=== PATIENT | male | born 1955 | race Caucasian/White ===

== ENCOUNTER → 2020-05-25 11:23 | Outpatient (CLI) | payer OTHER, SELFPAY ==
--- NOTE | ~2020-05-25 | XR_ITS ---
EXAMINATION:XR_CERV2-3V_CR DATE: 05/25/2020 11:41 INDICATION: Neck pain TECHNIQUE: AP, lateral, and odontoid views of the cervical spine are provided. COMPARISON: None FINDINGS: Alignment is normal. The odontoid is intact. No fracture is identified. The vertebral body heights are maintained. There is mild loss of intervertebral disc space height at C5-6 and C6-7. Ther e is mild to moderate facet and uncovertebral joint osteoarthritis of the lower cervical spine. Degen erative osteophytes project from the anterior endplates of multiple vertebral bodies. IMPRESSION: 1. Mild cervical spondylosis without acute findings. Reviewed, dictated and finalized at location B.
--- NOTE | ~2020-05-25 | XR_ITS ---
EXAMINATION: XR thoracic spine 3V DATE: 05/25/2020 11:41 INDICATION: Muscle spasm back TECHNIQUE: AP, lateral and lateral swimmer's views of the thoracic spine were obtained. COMPARISON: None. FINDINGS: There is no fracture. Bone alignment is normal. The vertebral body heights are maintained. There is mild loss of intervertebral disc space height in the midthoracic spine. Degenerative osteoph ytes project from the anterior endplates of multiple vertebral bodies. IMPRESSION: 1. Mild thoracic spondylosis without acute findings. Reviewed, dictated and finalized at location B.
== END ==
PROVIDERS: PCP Family Medicine; Visit Provider Family Medicine
DX: M47.814 Spondylosis without myelopathy or radiculopathy, thoracic region (principal); M47.22 Other spondylosis with radiculopathy, cervical region
CPT/HCPCS: 72040; 72072

== ENCOUNTER → 2021-06-23 11:53 | Outpatient (REF) | payer OTHER, SELFPAY | LOC: ANHLAB 11:53 | PROVIDERS: Visit Provider Nurse Practitioner | DX: L57.0 Actinic keratosis (principal) | CPT/HCPCS: 88305 ==

== ENCOUNTER 2021-06-23 12:39 | Outpatient (CLI) | payer OTHER, SELFPAY ==
--- NOTE | ~2021-06-23 | XR_ITS ---
EXAMINATION: XR shoulder LT min 2V DATE: 06/23/2021 14:30 INDICATION: Left shoulder pain. TECHNIQUE: 4 views of left shoulder were obtained. COMPARISON: None. FINDINGS: Bone alignment is normal. No fracture. There is mild osteoarthritis of glenohumeral joint a nd severe osteoarthritis of the acromioclavicular joint. IMPRESSION: 1. Polyarticular osteoarthritis. Reviewed, dictated and finalized at location A.
--- NOTE | ~2021-06-23 | MR_ITS ---
EXAMINATION: MR cervical spine wo con DATE: 06/23/2021 14:08 INDICATION: Cervical radiculopathy. TECHNIQUE: Magnetic resonance imaging (MRI) of the cervical spine was performed without intravenous c ontrast. Sequences included sagittal T2-weighted FSE, sagittal STIR FSE, sagittal T1-weighted FSE, ax ial MERGE, and axial T2-weighted FSE. COMPARISON: Cervical spine radiographs 05/25/2020 FINDINGS: There is 4 degrees levocurvature of cervicothoracic spine. There is mild kyphosis of the ce rvical spine. Vertebral body heights are normal. There is moderately decreased disc height at C5-C6 a nd C6-C7. The spinal cord signal intensity is normal. The following disc levels are specifically disc ussed: C2-C3: The disc does not extend beyond the endplate margin. There is no uncovertebral joint osteoarth ritis. There is mild right and moderate left facet joint osteoarthritis. There is mild left neural fo raminal stenosis. There is no central canal stenosis. C3-C4: The disc is bulging. There is mild right and severe left uncovertebral joint osteoarthritis. T here is moderate and mild left facet joint osteoarthritis. There is mild right and moderate left neur al foraminal stenosis. There is mild central canal stenosis. C4-C5: The disc is bulging. There is mild bilateral uncovertebral joint osteoarthritis. There is mild bilateral facet joint osteoarthritis. There is no neural foraminal stenosis. There is mild central c anal stenosis. C5-C6: The disc does not extend beyond the endplate margin. There is severe bilateral uncovertebral j oint osteoarthritis. There is no facet joint osteoarthritis. There is mild bilateral neural foraminal stenosis. There is no central canal stenosis. C6-C7: The disc is bulging. There is severe bilateral uncovertebral joint osteoarthritis. There is mi ld right and severe left facet joint osteoarthritis. There is moderate right and mild left neural for aminal stenosis. There is mild central canal stenosis. C7-T1: The disc is bulging. There is mild bilateral uncovertebral joint osteoarthritis. There is aj re bilateral facet joint osteoarthritis. There is mild bilateral neural foraminal stenosis. There is mild central canal stenosis. IMPRESSION: 1. Moderate cervical spondylosis. Reviewed, dictated and finalized at location A.
--- NOTE | ~2021-06-23 | XR_ITS ---
EXAMINATION: XR knee RT 2V DATE: 06/23/2021 14:30 INDICATION: Right knee pain. TECHNIQUE: 2 views of right knee standing were obtained. COMPARISON: None. FINDINGS: Bone alignment is normal. No fracture. There is moderate osteoarthritis of medial compartme nt and mild osteoarthritis of lateral and patellofemoral compartments. No knee joint effusion. IMPRESSION: 1. Moderate right knee osteoarthritis. Reviewed, dictated and finalized at location A.
== END 2021-06-23 12:40 ==
PROVIDERS: PCP Family Medicine; Visit Provider Nurse Practitioner Family
DX: M25.512 Pain in left shoulder (principal); M25.561 Pain in right knee; M54.12 Radiculopathy, cervical region; M89.49 Other hypertrophic osteoarthropathy, multiple sites; M47.812 Spondylosis without myelopathy or radiculopathy, cervical region
CPT/HCPCS: 72141; 73030; 73560

== ENCOUNTER 2021-08-21 17:29 | Observation (INO) | payer OTHER, SELFPAY ==
[2021-08-21] VITALS (8 sets, daily range): BP systolic 104–159; BP diastolic 63–90; PULSE 71–89; RESP 18–20; TEMP 36.6–36.8; O2SAT 95–99; BMI 33.0
--- NOTE | ~2021-08-21 | MR_ITS ---
EXAMINATION: MR brain/brain stem wo/w con DATE: 08/22/2021 13:23 INDICATION: Left arm numbness. TECHNIQUE: Magnetic resonance imaging (MRI) of the brain and brainstem was performed without and with 20 mL MultiHance intravenous contrast. Sequences included sagittal and axial T1-weighted FSE, axial diffusion-weighted FS EPI, axial T2*-weighted GRE, axial T2-weighted FLAIR Propeller, and axial T2-we ighted Propeller. Postcontrast sequences included axial and coronal T1-weighted FSE. Apparent diffusi on coefficient (ADC) maps were created. COMPARISON: None. FINDINGS: There is diffuse brain volume loss. There are areas of increased T2-weighted signal intensi ty in the periventricular cerebral white matter, which is within normal limits for the patient's age. There is no intracranial hemorrhage, acute infarction, or abnormal intracranial mass lesion. The mary tricles are normal in size. There is mild mucosal thickening in the paranasal sinuses. The orbits are normal. The mastoid air cells are normal. IMPRESSION: 1. Normal aging brain. Reviewed, dictated and finalized at location A. IMPRESSION: 1. Normal aging brain.
--- NOTE | ~2021-08-21 | XR_ITS ---
XR chest 2V DATE: 08/21/2021 18:06 INDICATION: Sternal chest pain, left arm numbness TECHNIQUE: PA and lateral views COMPARISON: 11/12/2013 PA and lateral chest FINDINGS: Normal heart size. No hilar or mediastinal enlargement. No pulmonary infiltrate or consolid ation, pleural effusion or pulmonary vascular congestion or pneumothorax. Diffuse idiopathic skeletal hyperostosis of the thoracic spine. IMPRESSION: No active cardiopulmonary disease Reviewed, dictated and finalized at location A.
--- NOTE | 2021-08-21 17:40 | ECG_ITS ---
Measurements Intervals [place] Rate: 82 P: 59 MO: 198 QRS: 88 QRSD: 105 T: 32 QT: 357 QTc: 417 Interpretive Statements SINUS RHYTHM MINIMAL Q WAVES- INFERIOR LEADS BORDERLINE ECG Electronically Signed On 08-21-2021 22:30:24 CDT by Adrián Marroquin D.O.
--- NOTE | 2021-08-21 17:54 | ED.CHESTPAIN ---
HPI - Chest Pain General Chief Complaint: Chest Pain Stated Complaint: chest pain, numbess in left arm and hand Time Seen by Provider: 08/21/21 17:45 Source: patient Mode of arrival: ambulatory Limitations: no limitations History of Present Illness HPI narrative: Patient is a 66-year-old male complain of chest pain, midsternal, tightness, 7 out of 10, radiating to left arm started 2 days ago. Patient denies any shortness of breath, abdominal pain, nausea, vomiting, diaphoresis, fever or chills. Related Data Home Medications Medication Instructions Recorded Confirmed gabapentin 300 mg capsule 600 mg PO DAILY cap 06/23/21 Allergies Allergy/AdvReac Type Severity Reaction Status Date / Time No Known Allergies Allergy Verified 08/21/21 17:40 Review of Systems Review of Systems: All systems reviewed & are unremarkable except as noted in HPI and below Constitutional: Constitutional: Denies body ache(s), Denies chills, Denies excessive sweating, Denies fatigue, Denies fever(s), Denies headache(s), Denies lethargy, Denies malaise, Denies weakness and Denies weight loss Eyes: Eyes: Denies blurry vision, Denies change in vision and Denies loss of vision ENT: Denies dizziness, Denies ear discharge, Denies headache(s), Denies lip swelling, Denies epistaxis, Denies nasal congestion, Denies neck pain, Denies throat swelling and Denies tongue swelling Cardiovascular: Cardiovascular: Denies diaphoresis, Denies rapid heart rate, Denies edema, Denies irregular heart rhythm, Denies lightheadedness, Denies palpitations, Denies dyspnea and Denies dyspnea on exertion Respiratory: Respiratory: Denies chest congestion, Denies cough, Denies hemoptysis, Denies dyspnea and Denies dyspnea on exertion Gastrointestinal: Gastrointestinal: Denies abdominal pain, Denies melena, Denies hematochezia, Denies diarrhea, Denies nausea, Denies vomiting and Denies hematemesis Musculoskeletal: Musculoskeletal: Denies abnormal gait, Denies deformity, Denies joint swelling, Denies limited range of motion, Denies neck pain and Denies numbness Neurologic: Denies Abnormal speech present, Denies abnormal gait, Denies confusion, Denies dizziness, Denies headache(s), Denies focal weakness, Denies loss of vision, Denies numbness, Denies Other visual disturbances, Denies Sensory deficit (Neuro) and Denies weakness Psychiatric: Psychiatric: Denies confusion, Denies depression, Denies auditory hallucinations, Denies homicidal ideation and Denies suicidal ideation Endocrine: Endocrine: Denies cold intolerance, Denies excessive sweating, Denies fatigue, Denies heat intolerance and Denies palpitations Hematologic/Lymphatic: Hematologic/Lymphatic: Denies easy bleeding and Denies easy bruising Allergic/Immunologic: Allergic/Immunologic: Denies lip swelling, Denies throat swelling and Denies tongue swelling PMFSH Past Medical History Medical History Abnormal skin growth BMI 28.0-28.9,adult BMI 32.0-32.9,adult BPH (benign prostatic hyperplasia) Cervical radiculopathy Erectile dysfunction Mixed hyperlipidemia Spasm of thoracic back muscle Family History Family History Other Diabetes mellitus Family history of coronary artery disease Family history of lung cancer Social History Social History Smoking status: Never smoker Alcohol intake: current Exam Const: General: cooperative, comfortable, no acute distress, well developed, alert and awake; No confusion Nutritional Appearance: obese Orientation/consciousness: oriented to person, oriented to place, oriented to time, patient oriented x3 and No confusion Limitations: no limitations HENMT: Head: normal to inspection, normocephalic and atraumatic Ears: hearing grossly normal bilaterally, TM normal on the right and TM normal on the left General
[2021-08-21] MEDS: ASPIRIN 81 MG CHEWABLE TABLET 324 MG PO (18:11)
[2021-08-21] MEDS: NITROGLYCERIN OINTMENT 1 INCH DOSE TRANSDERM (18:11)
[2021-08-21 18:36] LABS: Basophils Percent Auto 0.6 % (0.2-1.2); Eosinophils Absolute Auto 0.1 K/mm3 (0-0.3); Eosinophils Percent Auto 2.8 % (0-4.4); Hematocrit 41.8 % (42.0-52.0); Hemoglobin 14.4 g/dL (14.0-18.0); Immature Granulocyte Absolute 0.03 K/mm3 (0.00-0.031); Immature Granulocyte Percent A 0.6 % (0-0.5); Lymphocytes Absolute Auto 1.69 K/mm3 (0.9-3.2); Lymphocytes Percent Auto 33.3 % (18.3-44.2); Mean Corpuscular HGB Conc 34.4 g/dl (32-36); Mean Corpuscular Hemoglobin 30.3 pg (26-34); Mean Corpuscular Volume 87.8 fl (80-100); Mean Platelet Volume 9.7 fl (7.4-10.4); Monocytes Absolute Auto 0.6 K/mm3 (0.1-0.6); Monocytes Percent Auto 11.4 % (2.6-8.5); Neutrophils Absolute Auto 2.6 K/mm3 (1.3-6.7); Neutrophils Percent Auto 51.3 % (45.5-73.1); Platelet Count Result 220 k/mm3 (150-375); Red Blood Count 4.76 M/mm3 (4.6-6.20); Red Cell Distribution Width 13.4 % (11.5-14.5); White Blood Count 5.1 K/mm3 (4.5-10.0)
[2021-08-21 18:45] LABS: INR 0.9
[2021-08-21 18:46] LABS: Partial Thromboplastin Time 32.1 SECONDS (22.3-36.8)
[2021-08-21 19:03] LABS: Anion Gap 8 mmol/L (8-16); Blood Urea Nitrogen 17 mg/dL (9-20); Calcium 8.9 mg/dL (8.4-10.2); Carbon Dioxide 26 mmol/L (22-30); Chloride 104 mmol/L (98-107); Estimated CRCL calculation 121 ml/min; Estimated Glomerular Filt Rate > 60; Glucose 148 mg/dL (65-110); Potassium 3.7 mmol/L (3.4-5.0); Sodium 138 mmol/L (137-145)
[2021-08-21 19:15] LABS: Troponin I < 0.012 ng/mL (0.000-0.034)
--- NOTE | 2021-08-21 19:15 | PC.NURSE ---
Patient report received. Assumed care of patient at this time.
[2021-08-21 20:53] LABS: Troponin I < 0.012 ng/mL (0.000-0.034)
--- NOTE | 2021-08-21 22:35 | PM.IMHP ---
H&P: HPI History of Present Illness Date/Time: 08/21/21 22:35 this is a 66-year-old male patient who has a history of BPH and hyperlipidemia. He has had no prior history of any heart disease. The patient stated that he does have some degenerative disc disease in his neck in that he has radiculopathy. The patient stated that he is due to have an injection to his neck and has been dealing with this radiculopathy. The patient came in today with complaints of chest pain, midsternal tightness. The patient stated that he was having pain in the midsternal area and that radiated down his arm. He stated that my arm just felt weird. This discomfort started approximately 2 days ago. He had no nausea vomiting or diarrhea. Patient stated that his chest pain was actually worse with rest. Patient stated that he had a stress test many years ago and was negative. Troponin negative x2. EKG was sinus rhythm. Chest x-ray was read as no acute cardiopulmonary disease. The patient was given aspirin and nitroglycerin in the emergency room. EKG was read as sinus rhythm. Patient is being admitted to observation status on the date of service of 08/21/2021. Chief Complaint: Chest pain Review of Systems Review of Systems: All systems reviewed & are unremarkable except as noted in HPI and below Constitutional: Constitutional: Reports as per HPI and Reports no additional constitutional complaints Eyes: Eyes: Reports as per HPI and Reports no additional eye complaints ENT: Reports system reviewed and no additional complaints, except as documented and Reports Normal hearing present Cardiovascular: Cardiovascular: Reports no additional cardiovascular complaints Respiratory: Respiratory: Reports no additional respiratory complaints and Reports no additional respiratory complaints Gastrointestinal: Gastrointestinal: Reports as per HPI and Reports no additional gastrointestinal complaints Musculoskeletal: Musculoskeletal: Reports no additional musculoskeletal complaints Integumentary/Breasts: Skin/Breast: Reports system reviewed and no additional complaints, except as docu and Reports as per HPI Neurologic: Reports system reviewed and no additional complaints, except as documented, Reports as per HPI and Reports Normal hearing present Psychiatric: Psychiatric: Reports no additional psychiatric complaints and Reports as per HPI Endocrine: Endocrine: Reports no additional endocrine complaints Hematologic/Lymphatic: Hematologic/Lymphatic: Reports no additional hematologic/lymphatic complaints Allergic/Immunologic: Allergic/Immunologic: Reports no additional allergic/immunologic complaints [facility] Past Medical History Medical History (Updated 08/21/21 @ 22:43 by Ceci Daniels NP) Abnormal skin growth BMI 28.0-28.9,adult BMI 32.0-32.9,adult BPH (benign prostatic hyperplasia) Cervical radiculopathy Erectile dysfunction Mixed hyperlipidemia Spasm of thoracic back muscle Surgical History Surgical History (Updated 08/21/21 @ 22:43 by Ceci Daniels NP) H/O hernia repair History of removal of pigmented skin lesion Family History Family History (Updated 08/21/21 @ 22:44 by Ceci Daniels NP) Father Diabetes mellitus Mother Lung cancer Other Family history of coronary artery disease Family history of lung cancer Social History Social History (Updated 08/21/21 @ 22:45 by Ceci Daniels NP) Social History: The patient is and lives with his . The patient works for [employer]. He has 2 children. Lifelong nonsmoker. He does not use any alcohol marijuana illicit drugs. Code status full code Smoking status: Never smoker Alcohol intake: current Substance use: never Substance use type: does not use Spiritual care concerns: No Meds Home Medications and Allergies Home Medications Medication Instructions Recorded Confirmed Type atorvastatin 40 mg tablet 40 mg PO DAILY #90 tablet 01/18/21
[2021-08-21 23:30] LABS: Troponin I < 0.012 ng/mL (0.000-0.034)
[2021-08-22] VITALS (11 sets, daily range): BP systolic 89–154; BP diastolic 49–85; PULSE 57–97; RESP 20–22; TEMP 36.2–36.6; O2SAT 96–100
--- NOTE | 2021-08-22 | EST_ITS ---
Patient Info Name: Rob Pena Age: 66 years : 1955 Gender: Male Ht: 73 in Wt: 250 lbs BSA: 2.45 m2 HR: 68 bpm BP: 137 / 84 mmHg Heart Rhythm: Sinus Rhythm Exam Date: 08/22/2021 9:57 AM Exam Location: [facility] Stress Patient Status: Inpatient Admit Date: 08/21/2021 Staff Ordering Physician: Ceci Daniels NP Attending Provider: Joelle Jones DO Exercise Technologist: Radha Amaya CT Exercise Physician: Norman Wilson MD Exam Type: CA stress test treadmill Study Info Indications R07.9 - Chest pain, unspecified An exercise stress test was performed. Summary 1. Exercise capacity fair to good at 6-[address] segment response to stress. 3. Hypertensive BP response to exercise. 4. At peak exercise, Patient did develop short-lived left sided chest pain that very quickly went away in recovery. Protocol: [facility] ECG Details Stage: REST Duration (min): 9 min : 31 sec Speed (mph): 0.0 Grade (%): 0 HR (bpm): 75 SBP (mmHg): 137 DBP (mmHg): 84 METS: --- Stage: STAGE 1 Duration (min): 1 min : 0 sec Speed (mph): 1.7 Grade (%): 10 HR (bpm): 96 SBP (mmHg): 137 DBP (mmHg): 84 METS: --- Stage: STAGE 1 Duration (min): 2 min : 0 sec Speed (mph): 1.7 Grade (%): 10 HR (bpm): 105 SBP (mmHg): 137 DBP (mmHg): 84 METS: --- Stage: STAGE 1 Duration (min): 3 min : 0 sec Speed (mph): 1.7 Grade (%): 10 HR (bpm): 107 SBP (mmHg): 167 DBP (mmHg): 88 METS: --- Stage: STAGE 2 Duration (min): 1 min : 0 sec Speed (mph): 2.5 Grade (%): 12 HR (bpm): 115 SBP (mmHg): 167 DBP (mmHg): 88 METS: --- Stage: STAGE 2 Duration (min): 2 min : 0 sec Speed (mph): 2.5 Grade (%): 12 HR (bpm): 123 SBP (mmHg): 184 DBP (mmHg): 83 METS: --- Stage: STAGE 2 Duration (min): 3 min : 0 sec Speed (mph): 2.5 Grade (%): 12 HR (bpm): 127 SBP (mmHg): 184 DBP (mmHg): 83 METS: --- Stage: STAGE 3 Duration (min): 1 min : 0 sec Speed (mph): 3.4 Grade (%): 14 HR (bpm): 138 SBP (mmHg): 211 DBP (mmHg): 113 METS: --- Stage: STAGE 3 Duration (min): 1 min : 8 sec Speed (mph): 3.4 Grade (%): 14 HR (bpm): 139 SBP (mmHg): 211 DBP (mmHg): 113 METS: --- Stage: RECOVERY Duration (min): 0 min : 51 sec Speed (mph): 0.0 Grade (%): 0 HR (bpm): 126 SBP (mmHg): 211 DBP (mmHg): 113 METS: --- Stage: RECOVERY Duration (min): 1 min : 51 sec Speed (mph): 0.0 Grade (%): 0 HR (bpm): 106 SBP (mmHg): 211 DBP (mmHg): 113 METS: --- Stage: RECOVERY Duration (min): 2 min : 51 sec Speed (mph): 0.0 Grade (%): 0 HR (bpm): 96 SBP (mmHg): 180 DBP (mmHg): 97 METS: --- Stage: RECOVERY Duration (min): 3 min : 5 sec Speed (mph):
--- NOTE | 2021-08-22 01:24 | ADMGEN ---
This patient, Rob Pena, was admitted to IMU Room 202-01 at 2055 on 08/21/21. Patient/family oriented to hospital policies and general routines including ID bracelet, bed and alarms, visiting hours, pain management, procedures, bathroom and other care routines, personal items, smoking policy, room service/diet, and visiting hours. Information on how to activate the Rapid Response Team has been discussed. Patient/Family are encouraged to report perceived risks to care and to ask questions if they do not understand what they are told or what they should do.
[2021-08-22 05:10] LABS: Basophils Percent Auto 0.7 % (0.2-1.2); Eosinophils Absolute Auto 0.1 K/mm3 (0-0.3); Eosinophils Percent Auto 2.5 % (0-4.4); Hematocrit 39.2 % (42.0-52.0); Hemoglobin 13.2 g/dL (14.0-18.0); Immature Granulocyte Absolute 0.04 K/mm3 (0.00-0.031); Immature Granulocyte Percent A 0.7 % (0-0.5); Lymphocytes Absolute Auto 1.44 K/mm3 (0.9-3.2); Mean Corpuscular HGB Conc 33.7 g/dl (32-36); Mean Corpuscular Hemoglobin 29.7 pg (26-34); Mean Corpuscular Volume 88.3 fl (80-100); Mean Platelet Volume 9.8 fl (7.4-10.4); Monocytes Absolute Auto 0.7 K/mm3 (0.1-0.6); Monocytes Percent Auto 12.5 % (2.6-8.5); Neutrophils Absolute Auto 3.2 K/mm3 (1.3-6.7); Neutrophils Percent Auto 57.6 % (45.5-73.1); Platelet Count Result 199 k/mm3 (150-375); Red Blood Count 4.44 M/mm3 (4.6-6.20); Red Cell Distribution Width 13.5 % (11.5-14.5); White Blood Count 5.5 K/mm3 (4.5-10.0)
[2021-08-22 05:24] LABS: Alanine Aminotransferase 32 U/L (4-50); Albumin Level 3.5 g/dL (3.5-5.1); Alkaline Phosphatase 40 U/L (38-126); Anion Gap 3 mmol/L (8-16); Aspartate Amino Transferase 28 U/L (17-59); Bilirubin,Total 0.3 mg/dL (0.2-1.3); Blood Urea Nitrogen 18 mg/dL (9-20); Calcium 8.9 mg/dL (8.4-10.2); Carbon Dioxide 31 mmol/L (22-30); Chloride 106 mmol/L (98-107); Estimated CRCL calculation 107 ml/min; Estimated Glomerular Filt Rate > 60; Glucose 109 mg/dL (65-110); Magnesium 2.1 mg/dL (1.6-2.3); Potassium 4.2 mmol/L (3.4-5.0); Sodium 140 mmol/L (137-145)
--- NOTE | 2021-08-22 09:26 | PC.NURSE ---
Pt to stress test via wheelchair
--- NOTE | 2021-08-22 10:29 | PC.NURSE ---
Pt returned from stress test via wheelchair.
[2021-08-22] MEDS: ATORVASTATIN 40 MG TABLET PO (12:02)
[2021-08-22] MEDS: FINASTERIDE 5 MG TABLET PO (12:02)
--- NOTE | 2021-08-22 14:02 | PM.DS ---
DS: Admitting Diagnosis Discharge Date 08/22/21 Admitting Diagnosis Chest pain DS: Discharge Diagnosis Discharge Diagnosis (1) Chest pain: Qualifiers: Chest pain type: unspecified Qualified Code(s): R07.9 - Chest pain, unspecified Code(s): R07.9 - Chest pain, unspecified Status: Acute (2) BPH (benign prostatic hyperplasia): Qualifiers: Lower urinary tract symptom presence: symptoms absent Qualified Code(s): N40.0 - Benign prostatic hyperplasia without lower urinary tract symptoms Code(s): N40.0 - Benign prostatic hyperplasia without lower urinary tract symptoms Status: Chronic (3) Mixed hyperlipidemia: Code(s): E78.2 - Mixed hyperlipidemia Status: Chronic (4) Cervical radiculopathy: Code(s): M54.12 - Radiculopathy, cervical region Status: Acute DS: Summary Hospital Course Reason for hospitalization: 66yo male presents with complaints of chest pain. Please see H&P for details Hospital Course: Patient presents to the emergency room complaints of chest pain was midsternal radiated to the left arm. This began about 2 days prior to admission. EKG showed minimal Q-waves in the inferior leads but no acute ST T wave changes. Chest x-ray was clear. Labs were unrevealing. His glucose was mildly elevated 148 but on recheck was normal. Troponin is negative x3. TSH was normal. Patient underwent exercise treadmill stress test which showed normal ST segment response to stress. He had hypertensive blood pressure response to exercise. At peak exercise patient developed short live left-sided chest pain that very quickly went away in recovery. Blood pressure did peak to 211/113. When asked about the chest pain, patient's denies that he had chest pain but complained of left upper arm pain. He says this occurred because he was gripping the side railing too tightly. He does have known left arm numbness and pain related to cervical radiculopathy. Patient's blood pressure during his hospital course was well controlled except it did drop to 89/49 in the middle the night related to the nitropaste. Suspect patient's chest pain might be related to demand ischemia if he has severe hypertension with exercise. Plan to start low-dose lisinopril. Patient did have an MRI of the brain due to the numbness in his left upper extremity that was normal. Patient overall did well was able be discharged home in stable condition on 08/22/2021. Status at Discharge Cognitive/behavioral status at discharge: Stable Time Spent with Patient Time attestation: Total time spent providing and/or coordinating discharge services: 32 minutes Time spent: Greater than 30 minutes Exam Narrative: AF 97.2 154/85 86 20 97% ra Gen - NARD Chest - CTA bilaterally, nml RR CV - RRR S1/S2 Abd - Soft, NT/ND, Positive BS Ext - No pedal edema Neuro - Alert and oriented. Nonfocal exam. Appears to have normal sensation to the left hand. 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 Psych - Nml mood and affect Skin - Warm and dry DS: Data Data Completed and Pending Labs on day of discharge: Labs from last 24 hours 08/22/21 08/22/21 08/22/21 04:27 04:27 04:27 WBC RBC Hgb Hct MCV MCH MCHC RDW Plt Count MPV Immature Gran % (Auto) Neut % (Auto) Lymph % (Auto) [place] % (Auto) Eos % (Auto) Baso % (Auto) Lymph # (Auto) [place] # (Auto) Eos # (Auto) Baso # (Auto) Abs Immat Gran (auto) Absolute Neuts (auto) Absolute Nucleated RBC Nucleated RBC % PT INR APTT Sodium 140 Potassium 4.2 Chloride 106 Carbon Dioxide 31 H Anion Gap 3 L BUN 18 Creatinine 0.80 Estim Creat Clear Calc 107 Estimated GFR > 60 Glucose 109 Calcium 8.9 Magnesium 2.1 Ferritin 105.00 Total Bilirubin 0.3 AST 28 ALT 32 Alkaline Phosphatase 40 Troponin I Total Protein 6.0 L Albumin
[2021-08-22 16:00] LABS: Total Triiodothyronine (T3) 1.44 NG/ML (0.97-1.69)
== END 2021-08-22 15:20 | disposition home or self-care (01) ==
LOC: ANHED 19:31 → ANHIMU 08-22 14:11
PROVIDERS: General Practice; Nurse Practitioner; Admitting Provider Internal Medicine; Emergency Provider Emergency Medicine; PCP Family Medicine; Visit Provider Internal Medicine
DX: R07.9 Chest pain, unspecified (principal); N40.0 Benign prostatic hyperplasia without lower urinary tract symptoms; E78.2 Mixed hyperlipidemia; M54.12 Radiculopathy, cervical region; E78.5 Hyperlipidemia, unspecified
CPT/HCPCS: 36415; 70553; 71046; 80048; 80053; 82728; 83735; 84439; 84443; 84480; 84484; 85025; 85610; 85730; 93005; 93017; 99285; A9270; A9577; G0378

== ENCOUNTER 2022-02-06 16:57 | Emergency (ER) | payer MEDICARE, SELFPAY ==
--- NOTE | ~2022-02-06 | XR_ITS ---
EXAM: XR shoulder RT min 2V HISTORY: ALYSSA MCDANIEL FELL ON PATIENT RT SHOULDER PAIN COMPARISON: None available FINDINGS: No acute fracture or dislocation. AC joint hypertrophy. Humeral head migration as can be s een with rotator cuff pathology. Visualized lung parenchyma is clear. IMPRESSION: No acute osseous finding in the right shoulder. Reviewed, dictated and finalized at location K.
--- NOTE | ~2022-02-06 | XR_ITS ---
EXAMINATION: XR chest 1V portable Exam Date/Time: 02/06/2022 17:35 CDT CLINICAL HISTORY: ALYSSA MCDANIEL FELL ON PATIENT Comparison: 08/21/2021. RESULT: Lines, tubes, and devices: None. Lungs and pleura: Clear. Cardiomediastinal silhouette: Stable cardiomediastinal silhouette. Other: No acute osseous or upper abdominal finding. IMPRESSION: No acute cardiopulmonary process. Reviewed, dictated and finalized at location K.
[2022-02-06 17:08] VITALS: BP 148/85; PULSE 83; RESP 16; O2SAT 98
--- NOTE | 2022-02-06 17:29 | WC.ED.TRAUMA ---
HPI - Trauma General Chief Complaint: Trauma Stated Complaint: lawnmower fell on patient Time Seen by Provider: 02/06/22 17:12 Source: patient and family Mode of arrival: ambulatory Limitations: no limitations History of Present Illness HPI narrative: Patient is 67 years old white male was riding a lawnmower and try to get off a trailer, the ramp broke off and fell down with the man more about 5 to 6 feet off the ground then the landlord rolled over on top of his right chest and right shoulder. Patient denies a head injury. Denies any headache, neck pain or abdominal pain. 1 hour prior to arrival to the emergency room. Patient was able to stand and drive his car back home, later his brought him to the emergency room. Related Data Allergies Allergy/AdvReac Type Severity Reaction Status Date / Time No Known Allergies Allergy Verified 02/06/22 17:22 Review of Systems Review of Systems: CONSTITUTIONAL: Denies fever, chills, or sweats. EYES: Denies visual changes, redness, or discharge. ENT: Denies rhinorrhea, congestion, sore throat, or otalgia. CARDIOVASCULAR: Denies chest pain, palpitations, or edema. RESPIRATORY: Denies cough or dyspnea. GASTROINTESTINAL: Denies abdominal pain, nausea, vomiting, or diarrhea. GENITOURINARY: Denies dysuria or hematuria. SKIN: Denies rash or itching. MUSCULOSKELETAL: Denies back pain, joint pain, or myalgia. NEUROLOGIC: Denies headache, numbness, or weakness. PSYCHIATRIC: Denies anxiety or depression. [facility] Past Medical History Medical History Abnormal skin growth Anxiety BMI 28.0-28.9,adult BMI 31.0-31.9,adult BMI 32.0-32.9,adult BPH (benign prostatic hyperplasia) Cervical radiculopathy Erectile dysfunction Essential hypertension Mixed hyperlipidemia Spasm of thoracic back muscle Surgical History Surgical History H/O hernia repair History of removal of pigmented skin lesion Family History Family History Father Diabetes mellitus Mother Lung cancer Other Family history of coronary artery disease Family history of lung cancer Social History Social History Social History: The patient is and lives with his . The patient works for [employer]. He has 2 children. Lifelong nonsmoker. He does not use any alcohol marijuana illicit drugs. Code status full code Smoking status: Never smoker Alcohol intake: current Substance use: never Substance use type: does not use Spiritual care concerns: No Exam Narrative: General appearance: Well-developed, well-nourished Skin: Normal color Head: Normocephalic, nontraumatic Eyes: Clear conjunctiva ENT: Oropharynx normal, ears normal, nose normal Neck: Supple, nontender Chest and respiratory: Airway patent, no respiratory distress, no accessory muscle use Heart: Regular rate/rhythm Abdomen: Soft, severe tenderness to right upper quadrant, no bruises, no swelling or rash., no organomegaly, quiet bowel sounds Vascular: Normal peripheral pulses, normal capillary refill. Musculoskeletal: Severe tenderness and limited range of motion of the right shoulder. Severe tenderness right ribs, no bruises, no swelling, no rash. Neurologic: Alert and oriented ?3, YEAST PUMPER is normal as tested, no gross motor deficit Course Course Emergency Course: stable Consultations Consultation #1: DR BAKER, ED at [facility], who accepted patient transfer Date: 02/06/22 Time: 18:57 Vital Signs Vital signs: Vital Signs Pulse Rate 83
[2022-02-06] MEDS: SODIUM CHLORIDE 0.9% IV 1,000 ML 999 ML IV CONT (17:44)
[2022-02-06 17:49] VITALS: BP 164/117; PULSE 107; RESP 20; O2SAT 97
[2022-02-06] MEDS: ONDANSETRON INJ 4 MG/2 ML VIAL IV PUSH (17:57)
[2022-02-06] MEDS: MORPHINE SULFATE (*CRX) 4 MG/ML INJ IV PUSH (17:57)
[2022-02-06 19:41] LABS: Basophils Percent Auto 0.6 % (0.2-1.2); Eosinophils Absolute Auto 0.1 K/mm3 (0-0.3); Hemoglobin 14.3 g/dL (14.0-18.0); Immature Granulocyte Absolute 0.02 K/mm3 (0.00-0.031); Immature Granulocyte Percent A 0.3 % (0-0.5); Lymphocytes Absolute Auto 1.48 K/mm3 (0.9-3.2); Lymphocytes Percent Auto 22.9 % (18.3-44.2); Mean Corpuscular HGB Conc 33.3 g/dl (32-36); Mean Corpuscular Hemoglobin 29.4 pg (26-34); Mean Corpuscular Volume 88.5 fl (80-100); Mean Platelet Volume 10.2 fl (7.4-10.4); Monocytes Absolute Auto 0.6 K/mm3 (0.1-0.6); Monocytes Percent Auto 9.5 % (2.6-8.5); Neutrophils Absolute Auto 4.2 K/mm3 (1.3-6.7); Neutrophils Percent Auto 64.7 % (45.5-73.1); Platelet Count Result 224 k/mm3 (150-375); Red Blood Count 4.86 M/mm3 (4.6-6.20); Red Cell Distribution Width 13.4 % (11.5-14.5); White Blood Count 6.5 K/mm3 (4.5-10.0)
--- NOTE | 2022-02-06 19:51 | PC.NURSE ---
[facility] aware that patient is leaving the facility at this time
== END 2022-02-06 19:51 | disposition short-term general hospital (02) ==
PROVIDERS: Emergency Provider Emergency Medicine; PCP Family Medicine
DX: S29.9XXA Unspecified injury of thorax, initial encounter (principal); S49.91XA Unspecified injury of right shoulder and upper arm, initial encounter; I10 Essential (primary) hypertension; E78.2 Mixed hyperlipidemia; W17.89XA Other fall from one level to another, initial encounter
CPT/HCPCS: 36415; 71045; 73030; 85025; 96361; 96374; 96375; 99285; J2270; J2405; J7030; L0140

== ENCOUNTER 2022-02-23 10:47 | Outpatient (CLI) | payer MEDICARE, SELFPAY ==
--- NOTE | ~2022-02-23 | MR_ITS ---
EXAMINATION: MR shoulder RT wo con DATE: 02/23/2022 11:42 INDICATION: Right shoulder pain TECHNIQUE: Magnetic resonance imaging (MRI) of the right shoulder was performed without intravenous c ontrast. Sequences included axial PD-weighted FS FSE, coronal oblique PD-weighted FS FSE, coronal obl ique T2-weighted FS FSE, sagittal PD-weighted FS FSE, and sagittal T1-weighted SE. COMPARISON: None. FINDINGS: Coracoacromial arch: The acromion undersurface is curved in morphology (type II). Moderate-sized anterior subacromial spur at the acromial insertion of the otherwise normal coracoacromial ligament. Mild acromioclavicular os teoarthritis. Rotator cuff: Moderate supraspinatus and infraspinatus tendinopathy with large full-thickness tear of the supraspin atus and infraspinatus tendons occurring near the superior facet footplate. Where there is still smal l amount of patchy frayed tendon material. The medial tear margin is retracted approximately 4 cm med ially tube midway between the apex of the humeral head at the lateral margin of the glenoid. The wlid s minor tendon is normal. Moderate subscapularis tendinopathy without discrete tear. There is feather y muscular edema throughout the infraspinatus muscle belly with only mild fatty infiltration of the s upraspinatus, infraspinatus and subscapularis muscle bellies suggesting the full-thickness rotator cu ff tear is likely relatively recent. Biceps tendon, glenoid labrum and glenohumeral cartilage: There is tendinopathy and longitudinal split tearing of the intra-articular portion of the long head biceps tendon. There appears to be at least partial tear along the myotendinous junction of the extra articular long head biceps tendon located caudal to the level of the intertubercular groove. Tenosyn ovitis as well as a low signal intensity likely osteochondral body in the long head biceps tendon she ath also called to the level of the intertubercular groove. Mild amorphous increased signal at the po sterior inferior glenoid labrum consistent with likely degenerative tearing. Mild partial-thickness c artilage loss with smooth chondral surface without degenerative subchondral changes both along the an terosuperior aspect of the humeral head as well as at the central to cephalad aspect of the glenoid. Fluid: Small glenohumeral joint effusion which extends through the full-thickness rotator cuff tear to commu nity with moderate amount of fluid throughout the subacromial/subdeltoid bursa. No loose osteochondra l bodies. Bones: Normal marrow signal with no edema, fracture or abnormal marrow replacing process. Mild cystic change at the lesser tuberosity. IMPRESSION: 1. Moderate supraspinatus and infraspinatus tendinopathy with large full-thickness tear along the cri tical zone. 2. Moderate subscapularis tendinopathy without discrete tear. 3. At least partial thickness tear at the myotendinous junction of the long head biceps tendon with t endinopathy of the intra-articular portion of the tendon. 4. Mild glenohumeral osteoarthritis with degeneration of the posterior inferior glenoid labrum. Reviewed, dictated and finalized at location B. IMPRESSION: 1. Moderate supraspinatus and infraspinatus tendinopathy with large full-thickn ess tear along the critical zone. 2. Moderate subscapularis tendinopathy without discrete tear. 3. At least partial thickness tear at the myotendinous junction of the long hea d biceps tendon with tendinopathy of the intra-articular portion of the tendon. 4. Mild glenohumeral osteoarthritis with degeneration of the posterior inferior glenoid labrum.
== END 2022-02-23 10:48 ==
PROVIDERS: PCP Family Medicine; Visit Provider Family Medicine
DX: M19.011 Primary osteoarthritis, right shoulder (principal); M75.91 Shoulder lesion, unspecified, right shoulder; M65.811 Other synovitis and tenosynovitis, right shoulder; M75.101 Unspecified rotator cuff tear or rupture of right shoulder, not specified as traumatic; S46.111A Strain of muscle, fascia and tendon of long head of biceps, right arm, initial encounter
CPT/HCPCS: 73221

== ENCOUNTER 2022-03-01 06:44 | Outpatient (CLI) | payer MEDICARE, SELFPAY ==
--- NOTE | 2022-03-07 18:56 | WPDSLEEPSTUD ---
Sleep Study Date of Study: 03/01/22 Ordering Provider: David Astorga MD Interpreting Physician: Valarie Medrano DO Sleep Study Type: Split Polysomnogram Height: 1.85 m Weight: 113.398 kg Body Mass Index: 33.0 Neck Circumference (inches): 19 [place]: 12 Reason for Sleep Study Witnessed apneas and daytime hypersomnia Sleep History The patient is a 67-year-old male with hypertension, hyperlipidemia, anxiety, benign prostatic hyperplasia and erectile dysfunction that had a sleep study ordered for evaluation of sleep apnea. The patient occasionally awakens from sleep short of breath. He occasionally awakens at night with heartburn, belching or cough. He rarely snores loud enough that others complain. He constantly has trouble sleeping when he has a cold. He occasionally wakes up gasping for air throughout the night. He frequently has breathing problems at night observed by his . He rarely sweats excessively at night. He occasionally has heart palpitations or irregular heartbeats during the night. He frequently falls asleep during the day but never while driving. He denies sleep paralysis and cataplexy. He denies having trouble at school or work due to sleepiness. He rarely experiences vivid dreamlike scenes upon awakening or falling asleep. He rarely has nightmares. He rarely remembers his dreams. He frequently has thoughts racing through his mind. He denies feeling sad, depressed or anxious. He rarely has muscular tension. He frequently notices parts of his body jerk. He occasionally kicks during the night. He denies having crawling and aching feelings in his legs. He rarely has leg pain during the night. He denies grinding his teeth during sleep and awakening with morning jaw pain. He is frequently bothered by pain during the day and frequently awakened by pain during the night. He frequently wakes up feeling stiff in the morning. He frequently wakes up with sore or achy muscles. He frequently wakes up with pain in the neck, spine and other joints. The patient goes to bed at 10:30 p.m. on weekdays and 11:00 p.m. on the weekends. It typically takes him 30 minutes to fall asleep. He wakes up 2-3 times throughout the night to use the restroom. He can fall asleep within 10-15 minutes. He wakes up at 6:30 a.m. on weekdays and 7:30 a.m. on the weekends. He typically gets 6-7 hours of sleep per night. He will stay in bed for 10 minutes after waking up in the morning. He currently lives with his and grandson. He does not consume any caffeinated beverages within 2 hours of bedtime. He does not engage in physical exercise before bedtime. He will watch television before falling asleep. He will take naps in the afternoon or the evening and they are refreshing. He drinks 2-3 caffeinated beverages per day. He will drink 1-3 alcoholic beverages by 1 sleep. He denies tobacco and recreational drug use. [facility] Past Medical History Medical History Abnormal skin growth Anxiety Apnea BMI 28.0-28.9,adult BMI 31.0-31.9,adult BMI 32.0-32.9,adult BMI 34.0-34.9,adult BPH (benign prostatic hyperplasia) Cervical radiculopathy Erectile dysfunction Essential hypertension Mixed hyperlipidemia Rib pain on right side Spasm of thoracic back muscle Suprascapular mononeuropathy Surgical History Surgical History H/O hernia repair History of removal of pigmented skin lesion Family History Family History Father Diabetes mellitus Mother Lung cancer Other Family history of coronary artery disease Family history of lung cancer Social History Social History Social History: The patient is and lives with his . The patient works for [employer]. He has 2 children. Lifelong nonsmoker.
[2022-03-07 19:04] VITALS: BMI 33.0
== END 2022-03-02 06:37 | disposition home or self-care (01) ==
LOC: ANHCSM 06:48
PROVIDERS: PCP Family Medicine; Visit Provider Family Medicine
DX: G47.33 Obstructive sleep apnea (adult) (pediatric) (principal)
CPT/HCPCS: 95811

== ENCOUNTER 2022-04-07 01:46 | Day surgery (SDC) | payer MEDICARE, SELFPAY ==
[2022-03-31 12:30] VITALS: BMI 33.7
--- NOTE | 2022-03-31 12:56 | PC.NURSE ---
Report to the Outpatient Waiting Room, entrance under the green pavilion located off [facility], at time __6:00AM on date __04/07/22 . OR Time: __7:30AM . - You and your visitor will be asked a series of questions to screen for COVID 19 for your protection. - Only one visitor is allowed at this time. - The patient visitor is requested to leave or wait in car when not with patient. - A mask is required within the hospital. Patients may have clear liquids (water, carbonated beverages, clear teas, apple juice) until 3 hours prior to surgery with a maximum of 20 ounces. - No food from midnight until time of surgery - Infants may have breast milk until 4 hours before surgery, formula 6 hours prior to surgery. - Children will be allowed to drink immediately following surgery. If applicable, please bring a bottle or sippy cup to assist with drinking. Juice, water, soda, and popsicles are readily available. For infants on formula, please bring formula the day of surgery. Pacifiers are allowed. Take the following medications with a SIP of water the morning of surgery: ____NONE Medications to discontinue per physician __HOLD ALL VITAMINS/SUPPLEMENTS 7 DAYS PRE-OP PER DR JORGENSEN__- last dose___04/03/22 Please no make-up, nail portuguese, hairspray, perfume, deodorant, or body powder the day of surgery. No jewelry (including any body piercings) or valuables the day of surgery, leave them at home. Please take a shower or bath the night before, or the morning of, surgery with an antibacterial soap. Wear comfortable, loose fitting clothing. Children are encouraged to wear pajamas. - Jewelry must be removed prior to entering the operating room. Rings and piercings that are not removed may be cut off. - The hospital will not accept responsibility for valuables. - Please leave all valuables, including medications, at home the day of surgery. If you are going home after surgery, a licensed combine driver must drive you home. - NO public transportation without another adult. - We recommend that an adult stay with you for 24 hours following discharge. - We also recommend that you do not drive, make important decision, drink alcoholic beverages, or take any drugs that were not prescribed by your health care provider for at least 24 hours after your discharge time. For Pediatric surgeries, we recommend two adults accompany the child home (only one inside the building at this time). Follow any additional instructions given to you from your surgeon. If you or anyone in your household have experienced Covid symptoms in the past week, please notify your surgeon or the nurse liaison at the phone number below for possible testing. Telephone instructions given to _PATIENT and asked if any additional questions and then verbalized understanding. Patient advised to call surgeon office or pre surgery nurse liaison [phone] if any additional questions.
--- NOTE | 2022-04-06 12:06 | WPDANESEPPF ---
Anes - Initial Pre Proc Eval Procedure: Operation Date: 04/07/22 07:30 Proposed Procedures p Right Shoulder Arthroscopic Rotator Cuff Repair - Vazquez Broderick MD Date/Time: 04/06/22 12:06 Surgeon: Vazquez Broderick MD Pre Op Diagnosis: right shoulder complete rotator cuff tear Patient Data Age: 67 Gender: M Height: 1.85 m Weight: 116 kg Allergies Allergy/AdvReac Type Severity Reaction Status Date / Time No Known Allergies Allergy Verified 04/07/22 06:28 Home Medications Medication Instructions Recorded Confirmed Type finasteride 5 mg tablet 5 mg PO DAILY #90 tabs 01/13/22 04/07/22 Rx atorvastatin 40 mg tablet 40 mg PO DAILY #90 tabs 02/16/22 04/07/22 Rx ascorbic acid (vitamin C) 250 mg 250 mg PO DAILY 03/31/22 04/07/22 History tablet cyanocobalamin (vitamin B-12) 1,000 mcg PO DAILY 03/31/22 04/07/22 History 1,000 mcg tablet lisinopril 10 mg tablet 10 mg PO QAM 03/31/22 04/07/22 History multivitamin 1 tablet PO DAILY 03/31/22 04/07/22 History zinc 15 mg tablet 15 mg PO ONCE 03/31/22 04/07/22 History Patient hx anesthesia problems: none Family hx anesthesia problems: none Results Review: All pre-operative results and documents have been reviewed as part of the pre-operative evaluation. [facility] Past Medical History Medical History (Updated 04/06/22 @ 12:07 by Chato Ernst MD) Abnormal skin growth Anxiety Apnea BMI 28.0-28.9,adult BMI 31.0-31.9,adult BMI 32.0-32.9,adult BMI 34.0-34.9,adult BPH (benign prostatic hyperplasia) Cervical radiculopathy Erectile dysfunction Essential hypertension History of stress test (~05/2021) Mixed hyperlipidemia DESTINEY (obstructive sleep apnea) Rib pain on right side Spasm of thoracic back muscle Suprascapular mononeuropathy Surgical History Surgical History H/O hernia repair History of removal of pigmented skin lesion Family History Family History Father Diabetes mellitus Mother Lung cancer Other Family history of coronary artery disease Family history of lung cancer Social History Social History (Updated 03/17/22 @ 11:54 by Marva George MA) Social History: The patient is and lives with his . The patient works for past [employer]. He has 2 children. Lifelong nonsmoker. He does not use any alcohol marijuana illicit drugs. Code status full code Smoking status: Never smoker Alcohol intake: current Alcohol use details: Twice a month Substance use: never Substance use type: does not use Living arrangements: with family Additional living arrangements comments: Spiritual care concerns: No Anes - Eval Final PreProcedure Day of Procedure 04/06/22 12:06 Patient weight: obese Heart: regular rate and rhythm Lungs: clear to auscultation and normal air movement Airway: Mallampati scale class II Neurological: alert and oriented Last oral intake: >/= 8 hours ASA classification: III Emergent: no Anesthetic plan: proceed Anesthesia type and monitoring: general ETT Results Review: All pre-operative results and documents have been reviewed as part of the pre-operative evaluation. Informed Consent: The patient's anesthetic plan and its attendant risks and benefits were discussed with the patient/family/POA. Questions were solicited and answers provided to the satisfaction of the patient/family/POA.
--- NOTE | 2022-04-06 12:07 | WPDANESPNB ---
Anes - Peripheral Nerve Block Date/Time: 04/06/22 12:07 I have discussed with the patient/family/POA the placement of a peripheral nerve block for post-operative pain management, including associated risks, benefits, complications, and side effects. Alternative methods of post-operative analgesia were detailed. Questions were solicited and answers provided to the satisfaction of the patient/family/POA. Time-Out: A pre-procedural Time-Out was completed immediately before starting the procedure and confirmed: Patient Identification, Site, Procedure, Patient Position and the Availability of Requisite Equipment. Clinical Indications: Acute post-operative pain management requested by the operative surgeon. Nerve Block Insertion Note Anes-nerve block: supraclavicular Patient position: supine Skin prep: chlorhexidine Needle: 22 gauge, stimulating, insulated echogenic needle. Needle length: 80 mm Technique: ultrasound (in plane) Injectate: bupivacaine 0.5% with epi 5 mcg/ml (20cc) Observations: tolerated well Complications: none Procedure start time:: 725 Procedure end time:: 730
[2022-04-07] VITALS (10 sets, daily range): BP systolic 106–142; BP diastolic 55–88; PULSE 59–80; RESP 11–21; TEMP 36.1–36.2; O2SAT 92–98
[2022-04-07] MEDS: ACETAMINOPHEN 500 MG TABLET 1000 MG PO (06:26)
[2022-04-07] MEDS: LACTATED RINGERS 1,000 ML 30 ML IV CONT ×2 (06:37→10:28)
[2022-04-07] MEDS: KETOROLAC 15 MG/ML VIAL (*BKC) IV PUSH (06:38)
--- NOTE | 2022-04-07 07:14 | WPDHPUPDATE1 ---
History and Physical Update Update Date/Time: 04/07/22 07:14 History and Physical has been reviewed, including an updated exam of the patient. There are NO changes in the patient's condition. Risks, benefits, and alternatives have been discussed and questions answered. Patient agrees to proceed with procedure.
[2022-04-07] MEDS: ceFAZolin 2 GM/D5W 50 ML 2 GM/50 ML BAG IVPB (07:31)
[2022-04-07] MEDS: EPINEPHrine HCL INJ 1 MG/ML AMPUL IRRIGATION (08:15)
--- NOTE | 2022-04-07 13:05 | P.OP_ITS ---
Procedure Note - Detailed Date of Procedure 04/07/22 Pre-op Diagnosis Right shoulder complete rotator cuff tear Post-op Diagnosis Other (1. Rotator cuff tear, massive retracted 2. Subacromial impingement 3. Biceps partial rupture) Procedure Performed Right shoulder 1. Arthroscopic rotator cuff repair 2. Arthroscopic subacromial decompression 3. Arthroscopic biceps tenotomy Surgeon Vazquez Broderick MD Truck Shop Supervisor Dixie Lima PA-C Anesthesia General and Regional ( interscalene block) Findings Massive retracted tear repaired with interval slide, two anchors and a posterior bone tunnel. Near complete biceps rupture treated with tenotomy. Minimal labral degeneration. Good articular cartilage. Description of Procedure Preoperative antibiotics were given. An interscalene block was administered in the preoperative area. The patient was bought brought to the operating room. A general anesthetic was administered. The patient was carefully positioned in the beach chair position. The head and neck were carefully positioned. The non operative extremity was also carefully positioned. The shoulder was prepped and draped in the usual sterile fashion. Examination was performed. Standard posterior and anterior arthroscopic portals were established. Inflow achieved with the arthroscopic pump using saline and epinephrine. The glenohumeral joint was carefully inspected. The cartilage was in good shape. The biceps was nearly completely ruptured. Tenotomy was performed. The subscapularis was healthy. The very large to massive full-thickness retracted tear was identified. There was mild hyperemia but no capsule contracture. Mild labral fraying was treated with gentle debridement. Attention was turned to the subacromial space. A complete bursectomy was performed. The rotator cuff and footprint were lightly debrided. A modest acromioplasty was performed. The tear configuration was carefully assessed. The tear was very large to massive. Significant retraction. Moderate mobility. Was elected to perform an anterior rotator interval slide. This mobilized the supraspinatus quite nicely and the tear demonstrated an L-shaped pattern. Tissue was mobilized somewhat posteriorly hand at 2 margin convergence sutures were placed in the posterior infraspinatus and teres minor. Two suture anchors were placed at the anterior cuff double loaded. A 3rd suture anchor did not hold in the soft bone and a bone tunnel was used instead. Three sutures were then passed into the posterior cuff tissue. The suture anchors were placed near the articular margin to medialized the tendon slightly. This allowed for a robust repair without tension. The sutures were tied arthroscopically. The arthroscopic instruments were removed. The wounds were closed with 3-0 Monocryl subcuticular suture and steri strips. There were no complications. A sling was applied and the patient brought to the recovery room. Physician assistant nurse manager, Dixie Lima PA-C, required for surgery; including pa tient positioning, draping, arthroscopic camera operation, maintaining instrument position, suture retrieval, wound closure, and dressing and sling placement. Implants biomet juggernot double loaded anchors. Estimated Blood Loss 10 Pathology None sent Complications No immediate complications Condition Stable Disposition PACU [facility] Billing Surgery - Charge Forward: Surgery Billing
== END 2022-04-07 12:12 | disposition home or self-care (01) ==
PROVIDERS: PCP Family Medicine; Visit Provider Orthopaedic Surgery
PROC: (CPT 29805; principal; 2022-04-07 07:30)
DX: S46.011A Strain of muscle(s) and tendon(s) of the rotator cuff of right shoulder, initial encounter (principal); S46.211A Strain of muscle, fascia and tendon of other parts of biceps, right arm, initial encounter; M75.41 Impingement syndrome of right shoulder; W17.89XA Other fall from one level to another, initial encounter; G89.18 Other acute postprocedural pain; I10 Essential (primary) hypertension; E78.2 Mixed hyperlipidemia; G47.33 Obstructive sleep apnea (adult) (pediatric); E66.9 Obesity, unspecified; Z68.33 Body mass index [BMI] 33.0-33.9, adult
CPT/HCPCS: 29827; 29826; 64415; A4565; A9270; C1713; J0171; J0690; J1100; J1885; J2250; J2405; J2704; J2710; J3010; J7120

== ENCOUNTER 2023-06-19 09:00 | Outpatient (NON) | payer MEDICARE, SELFPAY | END 2023-06-19 09:01 | disposition home or self-care (01) | LOC: ANHLAB 06-20 12:17 | PROVIDERS: PCP Family Medicine; Visit Provider Nurse Practitioner | DX: L57.0 Actinic keratosis (principal); D23.39 Other benign neoplasm of skin of other parts of face | CPT/HCPCS: 88305 ==